=== PATIENT | female | born 1985 | race Caucasian/White ===

== ENCOUNTER 2017-05-07 21:47 | Inpatient (IN) | payer BC, OTHER ==
[~2017-05-07] VITALS: Ht 175.3 cm; Wt 65.8 kg
[2017-05-07] MEDS ORDERED: ONDANSETRON 4 MG/2 ML VIAL IM PRN (22:00)
[2017-05-07] MEDS ORDERED: BUPRENORPHINE HCL 2 MG TAB.SUBL SL PRN (22:00)
[2017-05-07] MEDS ORDERED: ONDANSETRON ODT 4 MG TAB.RAPDIS SL PRN (22:00)
[2017-05-07] MEDS ORDERED: IBUPROFEN 600 MG TABLET PO PRN (22:00)
[2017-05-07] MEDS ORDERED: METHOCARBAMOL 750 MG TABLET PO PRN (22:00)
[2017-05-07] MEDS ORDERED: CLONIDINE HCL 0.1 MG TABLET PO PRN (22:00)
[2017-05-07] MEDS ORDERED: DICYCLOMINE HCL 20 MG TABLET PO PRN (22:00)
[2017-05-07] MEDS ORDERED: MIRALAX 17 GM POWD.PACK PO PRN (22:00)
[2017-05-07] MEDS ORDERED: LOPERAMIDE HCL 2 MG CAPSULE PO PRN ×2 (22:00)
[2017-05-07] MEDS ORDERED: THIAMINE HCL 200 MG/2 ML VIAL IM ONE (22:00)
[2017-05-07] MEDS ORDERED: ACETAMINOPHEN 325 MG TABLET PO PRN (22:00)
[2017-05-07] MEDS ORDERED: LORAZEPAM 2 MG/1 ML VIAL IM PRN (22:00)
[2017-05-07] MEDS ORDERED: LORAZEPAM 1 MG TABLET PO PRN (22:00)
[2017-05-07] MEDS ORDERED: diphenhydrAMINE 50 MG CAPSULE PO PRN (22:00)
[2017-05-07] MEDS ORDERED: MAG HYDROX/AL HYDROX/SIMETH 30 ML LIQUID UDC PO PRN (22:00)
[2017-05-07] MEDS ORDERED: MAGNESIUM HYDROXIDE 30 ML LIQUID UDC PO PRN (22:00)
[2017-05-07 22:48] LABS: BASOPHILS # (AUTO) 0.1 K/uL (0.0-8.0); BASOPHILS % (AUTO) 0.9 % (0.0-2.0); EOSINOPHILS # (AUTO) 0.3 K/uL (0.0-0.7); EOSINOPHILS % (AUTO) 3.6 % (0.0-7.0); HEMATOCRIT 36.2 % (31.2-41.9); HEMOGLOBIN 12.6 g/dL (10.9-14.3); LYMPHOCYTES # (AUTO) 3.2 K/uL (20.0-40.0); LYMPHOCYTES % (AUTO) 38.5 % (20.5-51.5); MEAN CORPUSCULAR HEMOGLOBIN 34.1 uug (24.7-32.8); MEAN CORPUSCULAR HGB CONC 35 g/dL (32.3-35.6); MEAN CORPUSCULAR VOLUME 97.7 fL (75.5-95.3); MONOCYTES # (AUTO) 0.6 K/uL (2.0-10.0); MONOCYTES % (AUTO) 7.2 % (0.0-11.0); NEUTROPHILS # (AUTO) 4.2 K/uL (1.8-8.9); NEUTROPHILS % (AUTO) 49.8 % (38.5-71.5); PLATELET COUNT (AUTO) 280 K/uL (179-408); RED BLOOD CELL COUNT(AUTO) 3.71 MIL/uL (3.63-4.92); WHITE BLOOD COUNT (AUTO) 8.4 K/uL (3.8-11.8)
[2017-05-07 23:08] LABS: BILIRUBIN,TOTAL 0.4 mg/dL (0.2-1.0); CREATININE 0.8 mg/dL (0.6-1.3); MAGNESIUM 1.8 mg/dL (1.8-2.4); POTASSIUM 3.6 mmol/L (3.5-5.1); TOTAL PROTEIN, SERUM 7.1 g/dL (6.4-8.2)
--- NOTE | 2017-05-07 23:30 | NUR ---
PRE - ADMISSION NOTE : Patient is 31 year old female came for supervised withdrawal from Alcohol, Heroin, Meth, Xanax, Marijuana on 05/07/2017. Pt. is poor historian due to heavy intoxication. She confirms history of multiple seizures(last one in November 2016, family history of epilepsy) , history of SI and attempt (she want to discuss it with MD only). She doesnt have Primary Care Provider at this time. Pt. doesnt have prescribed medications at this time . Longest sober period was 11 moths in 2011. Pt. was 12 times in jails and prisons (violence against police officers, possession and selling of drugs). Upon assessment, pt is intoxicated from recent alcohol and drugs consumed prior to admission. She is alert and oriented x3, speech is slow and audible. Pt noted to be anxious, restless, worried, tearful. Heart rate regular. Denies chest pain or SOB. Pupils are 1mm bilaterally, breathing is even and unlabored, lung sounds clear. Denies nausea, vomiting, tactile disturbances, visual or auditory hallucinations at this time. Abdomen is soft and non-distended Pt's skin is warm, dry and intact, no open skin damages, both heels scabs. WL=423/74, HR=80, RR=16, Spo2=98%, denies pain. Hiswic=661mgj, Height=59. CIWA=10, COWS=7. Pt. will be admitted to the unit..
[2017-05-07 23:34] LABS: THYROID STIMULATING HORMONE 4.846 mIU/mL (0.358-3.740)
[2017-05-08] VITALS: BP 128/74
--- NOTE | 2017-05-08 | NUR ---
ADMISSION NOTE : Patient is 31 year old female admitted for supervised withdrawal from Alcohol, Heroin, Meth, Xanax, Marijuana on 05/07/2017. Pt. is allergic to Penicillins, FULL CODE, on Kosher Diet. Pt. is poor historian due to heavy intoxication. She confirms history of multiple seizures(last one in November 2016, family history of epilepsy) , history of SI and attempt (she want to discuss it with MD only). She doesnt have Primary Care Provider at this time. Pt. doesnt have prescribed medications at this time . Longest sober period was 11 moths in 2011. Pt. was 12 times in jails and prisons (violence against police officers, possession and selling of drugs). Upon assessment, pt is intoxicated from recent alcohol and drugs consumed prior to admission. She is alert and oriented x3, speech is slow and audible. Pt noted to be anxious, restless, worried, tearful. Heart rate regular. Denies chest pain or SOB. Pupils are 1mm bilaterally, breathing is even and unlabored, lung sounds clear. Denies nausea, vomiting, tactile disturbances, visual or auditory hallucinations at this time. Abdomen is soft and non-distended. Bowel sounds present in all quadrants, last BM 05/07/17. Pt reports that BM is every second day. Pt's skin is warm, dry and intact, no open skin damages, both heels scabs. LW=138/74, HR=80, RR=16, Spo2=98%, denies pain. Nvjnkc=468ysr, Height=59. CIWA=10, COWS=7. Dr. Baca is aware of pt.s admission, new orders given. Pt oriented to room and unit. Pt. cant provide UDS at this moment. Safety measures in place, side rails up x 2 . Will continue to monitor closely and offer help. Substance use history per patient report: 1) Alcohol (whiskey) - pt. reports last use was 05/07/17, drinking 750ml daily since 2001., started drinking s.2001. 2) Heroin 5gm QD IV/Smokes last 6 mo., last use on 05/07/2017 , Uses since 2005 3) METH 1gm QD IV last year, last use on 05/07/2017, uses since 1999 4) XANAX - Pt. is poor historian due to heavy intoxication. 5) Marijuana , 3gm QD smokes s. 2007, last use on 05/07/2017, uses since 2007 Pt. occasionally takes Cocaine. Pt. smokes 20 cig QD Rehab history: multiple Detox and Rehab attempts. Past Medical History : Chlamydia bacteria infection, Depression, Anxiety, PTSD, Asthma. Pt. has history SI and attempt (she want to discuss it with MD only). Family History : Alcoholizm, HTN, Bipolar disorder
[2017-05-08] MEDS ORDERED: FISH400C2 PO (00:36)
[2017-05-08] MEDS ORDERED: CYAN100071 PO (00:36)
[2017-05-08 04:00] VITALS: BP 129/75
--- NOTE | 2017-05-08 04:00 | NUR ---
PRN ATIVAN, ROBAXIN, CATAPRES (CIWA=13) Pt. complains of nausea, increased level of anxiety, muscle spasm, tremor, flashes . PRN ATIVAN, ROBAXIN, CATAPRES given as ordered. Safety measures in place : bed on lowest position with side rails x2 up for safety, call light within reach. Will continue to monitor closely and offer help.
[2017-05-08] MEDS: LORAZEPAM 1 MG TABLET PO PRN ×2 (04:19→09:03)
[2017-05-08 04:31] LABS: *URINE HCG, QUAL NEGATIVE (NEGATIVE)
[2017-05-08 04:38] LABS: *AMPHETAMINE, URINE POSITIVE (NEGATIVE); *BARBITURATE, URINE NEGATIVE (NEGATIVE); *CANNABINOID, URINE NEGATIVE (NEGATIVE); *COCCAINE, URINE NEGATIVE (NEGATIVE); *OPIATE, URINE POSITIVE (NEGATIVE); *PHENCYCLIDINE SCREEN,URINE NEGATIVE (NEGATIVE)
--- NOTE | 2017-05-08 05:00 | NUR ---
RE-ASSESSMENT YUSEF ECHOLS CATAPRES (CIWA=10) Pt. is sleeping, RR=16, unlabored and even . Safety measures in place : bed on lowest position with side rails x2 up for safety, call light within reach. Will continue to monitor closely and offer help.
--- NOTE | 2017-05-08 06:41 | NUR ---
END OF SHIFT NOTE : Patient is 31 year old female admitted for supervised withdrawal from Alcohol, Heroin, Meth, Xanax, Marijuana on 05/07/2017. Pt. is allergic to Penicillins, FULL CODE, on Kosher Diet. She confirms history of multiple seizures(last one in November 2016, family history of epilepsy) , history of SI and attempt (she want to discuss it with MD only). Pt. PRN ATIVAN, ROBAXIN, CATAPRES given during shift supervisor . CIWA, COWS taken when pt. was awake, last CIWA=13, COWS=7 at 04:00 . Pt. provided UDS, sample has been sent to the lab. Pt. states she feels better after she got [id number], still visible tremor observed. Pupils are 2-3mm, good reaction to the light. CIWA=10 at 05:00. Educated patient regarding the importance of compliance to treatment and medication regime, patient verbalized understanding Intake= 750ml, voided x1, slept=2 hours. Safety measures in place : bed on lowest position with side rails x2 up for safety, all light within reach. Will continue to monitor closely and offer help.
--- NOTE | 2017-05-08 07:57 | NUR ---
Start of shift note; Received report from night nurse. Patient is a 31 year old female admitted last night for ETOH/ Opiate/ Benzodiazepine withdrawals. Patient appears anxious, agitated, complaining of muscle aches, stomach cramps, restlessness, irritability, avoidant to eye contact, appears worried and withdrawn. Educated patient regarding the importance of compliance to treatment and medication regime, patient verbalized understanding. Encouraged patient to verbalize feeling and participate in group activities and therapies. All safety measures secured. Will continue to monitor patient.
[2017-05-08 08:00] VITALS: BP 104/86
[2017-05-08] MEDS: MULTIVITAMINS,THERAPEUTIC TABLET PO SCH (08:55)
[2017-05-08] MEDS: THIAMINE HCL 100 MG TABLET PO SCH (08:55)
[2017-05-08] MEDS: FOLIC ACID 1 MG TABLET PO SCH (08:55)
[2017-05-08] MEDS ORDERED: TUBERCULIN,PURIF.PROT.DERIV. 5 TU/0.1 ML TEST ID ONE (09:00)
--- NOTE | 2017-05-08 09:03 | NUR ---
PRN Medications; Patient is showing s/s of withdrawals, Patient's current COWS score is 18 and CIWA score of 17. PRN Ativan 2mg PO given for CIWA of 17 and PRN Subutex 4mg SL given for COWS os 18. PRN Zofran 4mg ODT given for nausea. Will closely monitor patient for effectiveness of medication. Addendum: 05/08/17 at 1001 by TENA ENGLISH LVN Instructed patient to sit up and put hands on the side while medications are dissolving. Mouth check done every 5-10 seconds. Witnessed patient swallow pills and Subutex dissolved slowly. Patient appears very anxious while medications were being administered. Requested STEFFEN HOUSE SUPERVISOR to conduct a thorough room check during rounds. Will closely monitor patient. Educated patient regarding the importance of compliance to unit protocols and policies, verbalized understanding.
--- NOTE | 2017-05-08 10:03 | NUR ---
Re-assessment; Patient's current COWS score is 13 and CIWA of 10, PRN medications Ativan and Subutex noted to be effective. Patient denies nausea at this time. PRN Zofran also noted to be effective.
[2017-05-08] MEDS ORDERED: NICOTINE POLACRILEX 4 MG GUM-PK OF TEN BC PRN (10:30)
[2017-05-08] MEDS ORDERED: NICOTINE 14 MG/24HR PATCH TD PRN (10:30)
[2017-05-08 12:00] VITALS: BP 122/69
[2017-05-08] MEDS: BUPRENORPHINE HCL 2 MG TAB.SUBL SL SCH ×3 (12:13→21:18)
[2017-05-08] MEDS: LORAZEPAM 1 MG TABLET PO SCH ×3 (12:13→21:19)
--- NOTE | 2017-05-08 12:30 | NUR ---
Medication administration; Due medications administered as ordered. Thorough mouth check done. Witnessed patient swallow Ativan and witnessed Subutex dissolve slowly. Mouth check done every 5 -10 seconds while medication is dissolving. Patient's hands were also thoroughly checked. Thorough room search were done by 2 naprapath, no contrabands noted per YARD GENERAL CAR SUPERVISOR. Will closely monitor patient.
[2017-05-08 16:00] VITALS: BP 118/64
--- NOTE | 2017-05-08 18:31 | NUR ---
End of shift note; Patient is AOx4, appears anxious, agitated, disheveled, complaining of diaphoresis, stomach cramps and muscle aches. Patient's last COWS score is 12 and last CIWA is 10 at 1600. Patient was placed on Ativan and Subutex tapers. Thorough mouth check was done during and post medication administration. Witnessed patient take all her medications appropriately. Patient was educated regarding the importance of compliance to unit protocol and policies, verbalized understanding. Patient remained compliant with treatment plan and medication regime. All safety measures secured. Met all needs.
[2017-05-08 20:00] VITALS: BP 124/75
[2017-05-08] MEDS: TRAZODONE 100 MG TABLET PO SCH (21:18)
[2017-05-08] MEDS: CARBAMAZEPINE 200 MG TABLET PO SCH (21:19)
[2017-05-09] VITALS: BP 122/73
--- NOTE | 2017-05-09 06:46 | NUR ---
END OF SHIFT NOTE : Patient is 31 year old female admitted for supervised withdrawal from Alcohol, Heroin, Meth, Xanax, Marijuana on 05/07/2017. Pt. is allergic to Penicillins, FULL CODE, on Kosher Diet. She confirms history of multiple seizures(last one in November 2016, family history of epilepsy) , history of SI and attempt (she want to discuss it with MD only). No PRNs given during massage therapist . CIWA, COWS taken when pt. was awake, last CIWA=10, COWS=10 at 04:00 . Intake= 3000ml, voided x5, BM=2, slept=5 hours. Safety measures in place : bed on lowest position with side rails x2 up for safety, all light within reach. Will continue to monitor closely and offer help.
[2017-05-09 07:28] LABS: CREATININE 0.9 mg/dL (0.6-1.3); MAGNESIUM 1.7 mg/dL (1.8-2.4); POTASSIUM 4.7 mmol/L (3.5-5.1)
--- NOTE | 2017-05-09 07:46 | NUR ---
Start of shift note; Received report from night nurse. Patient is a 31 year old female admitted last night for ETOH/ Opiate/ Benzodiazepine withdrawals. Patient appears anxious, agitated, complaining of muscle aches, stomach cramps, restlessness, irritability, avoidant to eye contact, appears worried and withdrawn. Educated patient regarding the importance of compliance to treatment and medication regime, patient verbalized understanding. Encouraged patient to verbalize feelings and participate in group activities and therapies. Patient slept for 5 hours. All safety measures secured. Will continue to monitor patient.
[2017-05-09 08:00] VITALS: BP 110/72
[2017-05-09 08:06] LABS: HEPATITIS B SURFACE AG Negative (Negative)
[2017-05-09 08:14] LABS: THYROID STIMULATING HORMONE 2.093 mIU/mL (0.358-3.740)
[2017-05-09] MEDS: ESCITALOPRAM OXALATE 10 MG TABLET NG SCH (08:19)
[2017-05-09] MEDS: FOLIC ACID 1 MG TABLET PO SCH (08:19)
[2017-05-09] MEDS: MULTIVITAMINS,THERAPEUTIC TABLET PO SCH (08:19)
[2017-05-09] MEDS: CARBAMAZEPINE 200 MG TABLET PO SCH ×2 (08:19→21:27)
[2017-05-09] MEDS: LORAZEPAM 1 MG TABLET PO SCH ×3 (08:19→21:27)
[2017-05-09] MEDS: THIAMINE HCL 100 MG TABLET PO SCH (08:19)
[2017-05-09] MEDS: BUPRENORPHINE HCL 2 MG TAB.SUBL SL SCH ×3 (08:20→21:29)
[2017-05-09] MEDS ORDERED: KETOROLAC TROMETHAMINE 30 MG INJ IM PRN (11:30)
[2017-05-09 12:00] VITALS: BP 122/73
[2017-05-09] MEDS ORDERED: MAGNESIUM OXIDE 400 MG TABLET PO ONE (12:30)
--- NOTE | 2017-05-09 13:08 | NUR ---
Magnesium supplement; Patient's magnesium is low. Supplement patient with Mag-Ox 800mg PO one time order per MD.
[2017-05-09 16:00] VITALS: BP 137/72
--- NOTE | 2017-05-09 18:15 | NUR ---
End of shift note; Patient is AOx4, appears anxious, agitated, disheveled, complaining of diaphoresis, stomach cramps and muscle aches. Patient's last COWS score is 9 and last CIWA is 7 at 1600. Patient was placed on Ativan and Subutex tapers. Thorough mouth check was done during and post medication administration. Witnessed patient take all her medications appropriately.Medication administration protocol observed closely. Patient was educated regarding the importance of compliance to unit protocol and policies, verbalized understanding. Patient remained compliant with treatment plan and medication regime. All safety measures secured. Met all needs.
[2017-05-09 20:00] VITALS: BP 119/72
--- NOTE | 2017-05-09 20:00 | NUR ---
WIde awake can't sit still, waiting to get meds to help her.
[2017-05-09] MEDS: BACLOFEN 10 MG TABLET PO SCH (21:27)
[2017-05-09] MEDS: CLONIDINE HCL 0.1 MG TABLET PO SCH (21:28)
[2017-05-09] MEDS: TRAZODONE 100 MG TABLET PO SCH (21:41)
[2017-05-10] VITALS: BP 122/73
[2017-05-10 04:00] VITALS: BP 104/57
--- NOTE | 2017-05-10 06:28 | NUR ---
Slept very soundly most of night
--- NOTE | 2017-05-10 07:50 | NUR ---
Start of shift note; Received report from night nurse. Patient is a 31 year old female admitted last night for ETOH/ Opiate/ Benzodiazepine withdrawals. Patient appears anxious, agitated, complaining of muscle aches, stomach cramps, restlessness, irritability, avoidant to eye contact, appears worried and withdrawn. Educated patient regarding the importance of compliance to treatment and medication regime, patient verbalized understanding. Encouraged patient to verbalize feelings and participate in group activities and therapies. Encouraged patient to maintain adequate fluid and nutritional intake. All safety measures secured. Will continue to monitor patient.
[2017-05-10 08:00] VITALS: BP 103/68
[2017-05-10] MEDS: CARBAMAZEPINE 200 MG TABLET PO SCH ×2 (08:32→21:09)
[2017-05-10] MEDS: BACLOFEN 10 MG TABLET PO SCH ×3 (08:32→21:09)
[2017-05-10] MEDS: THIAMINE HCL 100 MG TABLET PO SCH (08:32)
[2017-05-10] MEDS: ESCITALOPRAM OXALATE 10 MG TABLET NG SCH (08:32)
[2017-05-10] MEDS: FOLIC ACID 1 MG TABLET PO SCH (08:32)
[2017-05-10] MEDS: CLONIDINE HCL 0.1 MG TABLET PO SCH ×3 (08:33→21:09)
[2017-05-10] MEDS: MULTIVITAMINS,THERAPEUTIC TABLET PO SCH (08:33)
[2017-05-10] MEDS ORDERED: BUPRENORPHINE HCL 2 MG TAB.SUBL SL SCH (09:00)
[2017-05-10] MEDS ORDERED: LORAZEPAM 1 MG TABLET PO SCH ×2 (09:00→21:00)
[2017-05-10] MEDS ORDERED: MAGNESIUM CITRATE 296 ML BOTTLE PO PRN (11:15)
[2017-05-10] MEDS ORDERED: BISACODYL 5 MG TABLET.DR PO PRN (11:15)
[2017-05-10] MEDS ORDERED: BISACODYL 10 MG SUPP.RECT RC PRN (11:15)
[2017-05-10 12:00] VITALS: BP 117/66
--- NOTE | 2017-05-10 12:03 | NUR ---
Endorsement note; Detailed report given to covering nurse. Patient is AOX4. Safety measures secured. Met all needs.
--- NOTE | 2017-05-10 12:05 | NUR ---
ASSUMED CARE OF PT. SHE IS A/O X 4.
[2017-05-10] MEDS: LORAZEPAM 1 MG TABLET PO SCH ×2 (12:46→17:32)
[2017-05-10] MEDS: DOCUSATE SODIUM 250 MG CAPSULE PO SCH (12:46)
[2017-05-10] MEDS: BUPRENORPHINE HCL 2 MG TAB.SUBL SL SCH ×2 (14:39→21:11)
[2017-05-10 16:00] VITALS: BP 115/65
--- NOTE | 2017-05-10 18:51 | NUR ---
END OF SHIFT: PT CONTINUES ON ATIVAN/SUBUTEX TAPER TO MANAGE S/S OF W/D WHICH INCLUDE ANXIETY,BODY ACHES,SWEATS AND CHILLS. CIWA 9 COWS 8. NO PRNS GIVEN ON THIS SHIFT. SHE ATTENDED GROUPS AND INTERACTED WITH PEERS. SHE WAS COMPLIANT WITH INCREASED FLUIDS ENCOURAGED. [facility]
[2017-05-10 20:00] VITALS: BP 119/75
--- NOTE | 2017-05-10 20:00 | NUR ---
START OF SHIFT NOTE RECEIVED REPORT FROM DAY SHIFT NURSE. PATIENT IS A 31 YEAR OLD FEMALE ADMITTED FOR ETOH/HEROIN/XANAX AND METH WITHDRAWAL. PATIENT IS ON 5 DAY ATIVAN AND 5 DAY SUBUTEX TAPER. PATIENT DID NOT REQUIRE ANY MEDICATION. LAST COWS 8 AND CIWA 9. RECEIVED PATIENT IN THE ROOM, HOARDING FOOD. PATIENT AVOIDANT EYE CONTACT, ANXIOUS, FLUSHED FACE, IRRITABLE, RESTLESS, STUFFY NOSE, ABDOMINAL CRAMPING, MYALGIA AND PILOERECTION. SAFETY MEASURES IN PLACE. CALL LIGHT IN REACH. WILL CONTINUE TO MONITOR.
[2017-05-10] MEDS: TRAZODONE 100 MG TABLET PO SCH (21:09)
[2017-05-11 04:00] VITALS: BP 100/58
--- NOTE | 2017-05-11 07:30 | NUR ---
END OF SHIFT NOTE PATIENT SLEPT 9 HOURS. FLUID INTAKE OF 796 ML. VOIDED X 3. NO BM. CONTINUE ON ATIVAN AND SUBUTEX TAPER, TOLERATED WELL AND NO ADVERSE REACTION. PATIENT DID NOT REQUIRE ANY MEDICATION. PATIENT IN THE ROOM MOST OF THE SHIFT. LAST COWS 10 AND CIWA 8. SAFETY MEASURES IN PLACE. CALL LIGHT IN REACH. WILL CONTINUE TO MONITOR.
--- NOTE | 2017-05-11 07:34 | NUR ---
BEGINNING OF SHIFT Patient endorsement report received from night clerk nurse, all pertinent information discussed. Patient is a 31 year old female with admitting Dx: opiate/bzo/ETOH withdrawal, and substance use of: cocaine, marijuana and methamphetamine. Patient continues under very close observation, patient currently with ongoing 5 day Ativan and 5 day Subutex taper as ordered. Per night clerk patient with last cow score of: 10, and ciwa score of: 8. Received no PRNs during night clerk. slept for 8 hours. Fall and seizure precautions observed at all times. Patient received awake, alert and oriented x4, educated regarding plan of care for the day, and medication regimen with good verbal understanding. fall and seizure precautions observed and in place. will continue to monitor closely. safety measures in place.
[2017-05-11 08:49] VITALS: BP 102/62
[2017-05-11] MEDS: CLONIDINE HCL 0.1 MG TABLET PO SCH ×3 (09:00→21:33)
[2017-05-11] MEDS ORDERED: LORAZEPAM 1 MG TABLET PO SCH ×3 (09:00→21:00)
[2017-05-11] MEDS ORDERED: BUPRENORPHINE HCL 2 MG TAB.SUBL SL SCH (09:00)
[2017-05-11] MEDS: MULTIVITAMINS,THERAPEUTIC TABLET PO SCH (09:03)
[2017-05-11] MEDS: THIAMINE HCL 100 MG TABLET PO SCH (09:03)
[2017-05-11] MEDS: FOLIC ACID 1 MG TABLET PO SCH (09:03)
[2017-05-11] MEDS: ESCITALOPRAM OXALATE 10 MG TABLET PO SCH (09:03)
[2017-05-11] MEDS: CARBAMAZEPINE 200 MG TABLET PO SCH ×3 (09:03→21:34)
[2017-05-11] MEDS: DOCUSATE SODIUM 250 MG CAPSULE PO SCH (09:04)
[2017-05-11] MEDS: BACLOFEN 10 MG TABLET PO SCH ×3 (09:04→21:34)
[2017-05-11] MEDS: BUPRENORPHINE HCL 2 MG TAB.SUBL SL SCH ×4 (09:04→21:34)
[2017-05-11] MEDS ORDERED: ASPI1TAB32 PO (09:53)
[2017-05-11] MEDS ORDERED: BUPR300T54 PO (09:54)
[2017-05-11] MEDS ORDERED: ESCI10TA PO (09:57)
[2017-05-11] MEDS ORDERED: TRAZ-144 PO (09:57)
[2017-05-11] MEDS ORDERED: PRAZOSIN HCL 1 MG CAPSULE PO PRN (10:30)
[2017-05-11 12:08] VITALS: BP 118/72
[2017-05-11] MEDS: LORAZEPAM 1 MG TABLET PO SCH ×2 (12:09→16:49)
[2017-05-11 16:48] VITALS: BP 105/68
--- NOTE | 2017-05-11 19:07 | NUR ---
END OF SHIFT Patient alert and oriented x4, monitored closely during shift. Patient has a worried, and anxious facial expression. Patient is disheveled. Tearful at times and noted with flat affect, and anxious mood. Patient with admitting Dx: etoh/bzo/opiate withdrawal, continues on a 5 day Subutex and 5 day Ativan taper as ordered. During shift patient presented with: gooseflesh, anxiety, irritable, tremors, stomach cramps, moist eyes, bone and joint aches, enlarged pupils, and c/o chills. Initial cow score of: 12, and ciwa score of: 11. Last cow score of: 12 and last ciwa score of: 11. detox medication effective at reducing withdrawal symptoms. Patient was encouraged adequate PO fluid intake as tolerated. Was administered no PRNs during shift. Patient encouraged to participate in therapy sessions, patient denies any SI/HI. Patient was encouraged to verbalize feelings, encouraged to develop coping skills and utilization of non pharmacological interventions. patients safety measures are in place. received no PRN during shift. call light kept with in reach, will continue to monitor. Endorsed to drill sergeant nurse, all pertinent information discussed.
--- NOTE | 2017-05-11 19:20 | NUR ---
Start of Shift Patient Received. Patient is in the activities room participating in a group meeting. Per endorsement, patient continues on a modified Subutex and Ativan taper. Patient has been noted to be emotional, noted with increased anxiety, body aches, complains of chills and sweats, and tremors. She is noted to be disheveled with a flat affect. No PRN medications administered. Last noted CIWA 11 and COWS 12. All needs attended to promptly. Will continue plan of care as ordered.
[2017-05-11 20:30] VITALS: BP 129/75
[2017-05-11] MEDS: TRAZODONE 100 MG TABLET PO SCH (21:34)
[2017-05-12 00:55] VITALS: BP 112/73
[2017-05-12 04:11] VITALS: BP 103/62
--- NOTE | 2017-05-12 07:20 | NUR ---
End of Shift Patient is noted in bed sleeping. Breathing even and non labored. Patient continues on a modified Subutex and Ativan taper. She is noted to be emotional, increased anxiety, body aches, tremulous, and chills. Last noted COWS 14 and CIWA 12. Patient noted to sleep a total of 8 hours. No PRN medications administered. All needs attended to promptly. Will continue plan of care as ordered.
--- NOTE | 2017-05-12 07:37 | NUR ---
BEGINNING OF SHIFT Patient endorsement report received from night supervisor nurse, all pertinent information discussed. Patient is a 31 year old female with admitting Dx: opiate/bzo/ETOH withdrawal, and substance use of: cocaine, marijuana and methamphetamine. Patient continues under very close observation, patient currently with ongoing 5 day Ativan and 5 day Subutex taper as ordered. Per night supervisor patient with last cow score of: 14, and ciwa score of: 12. Received no PRNs during night supervisor. slept for 8 hours. Fall and seizure precautions observed at all times. Patient received awake, alert and oriented x4, educated regarding plan of care for the day, and medication regimen with good verbal understanding. fall and seizure precautions observed and in place. will continue to monitor closely. safety measures in place.
[2017-05-12 08:43] VITALS: BP 120/70
[2017-05-12] MEDS: DOCUSATE SODIUM 250 MG CAPSULE PO SCH (08:59)
[2017-05-12] MEDS: BACLOFEN 10 MG TABLET PO SCH (08:59)
[2017-05-12] MEDS: MULTIVITAMINS,THERAPEUTIC TABLET PO SCH (08:59)
[2017-05-12] MEDS: CLONIDINE HCL 0.1 MG TABLET PO SCH ×2 (08:59→14:20)
[2017-05-12] MEDS: LORAZEPAM 1 MG TABLET PO SCH ×3 (08:59→21:35)
[2017-05-12] MEDS: CARBAMAZEPINE 200 MG TABLET PO SCH ×3 (08:59→21:36)
[2017-05-12] MEDS: THIAMINE HCL 100 MG TABLET PO SCH (08:59)
[2017-05-12] MEDS: FOLIC ACID 1 MG TABLET PO SCH (08:59)
[2017-05-12] MEDS: BUPRENORPHINE HCL 2 MG TAB.SUBL SL SCH ×3 (08:59→21:36)
[2017-05-12] MEDS: ESCITALOPRAM OXALATE 10 MG TABLET PO SCH (08:59)
[2017-05-12] MEDS ORDERED: BUPRENORPHINE HCL 2 MG TAB.SUBL SL SCH (09:00)
[2017-05-12] MEDS ORDERED: LORAZEPAM 1 MG TABLET PO SCH (09:00)
[2017-05-12 13:35] VITALS: BP 117/60
[2017-05-12] MEDS: DICYCLOMINE HCL 20 MG TABLET PO SCH ×2 (14:18→21:35)
[2017-05-12] MEDS: BACLOFEN 20 MG TABLET PO SCH ×2 (14:18→21:36)
[2017-05-12] MEDS ORDERED: IBUP-1955 PO (17:04)
[2017-05-12] MEDS ORDERED: DICY20TA28 PO (17:04)
[2017-05-12] MEDS ORDERED: CARB200T8 PO (17:04)
[2017-05-12] MEDS ORDERED: TRAZ-147 PO (17:04)
[2017-05-12] MEDS ORDERED: PRAZ1CAP2 PO (17:04)
[2017-05-12] MEDS ORDERED: BACL20TA PO (17:04)
[2017-05-12] MEDS ORDERED: ESCI10TA PO (17:04)
[2017-05-12] MEDS ORDERED: DIPH50CA37 PO (17:04)
[2017-05-12] MEDS ORDERED: CLON0.1T14 PO (17:04)
[2017-05-12 17:27] VITALS: BP 117/60
--- NOTE | 2017-05-12 19:08 | NUR ---
END OF SHIFT Patient alert and oriented x4, monitored closely during shift. Patient has a worried, and anxious facial expression. Patient is disheveled. Tearful at times and noted with flat affect, and anxious mood. Patient with admitting Dx: etoh/bzo/opiate withdrawal, continues on a 5 day Subutex and 5 day Ativan taper as ordered. During shift patient presented with: c/o chills, difficulty sitting still, dilated pupils, bone and joint aches, moist eyes, stomach cramps, tremors that can be felt but not seen, anxiety. Initial cow score of: 9 and ciwa score of: 11. Last cow score of: 9, and ciwa score of: 11. detox medication effective at reducing withdrawal symptoms. Patient was encouraged adequate PO fluid intake as tolerated. Was administered no PRNs during shift. Patient encouraged to participate in therapy sessions, patient denies any SI/HI. Patient was encouraged to verbalize feelings, encouraged to develop coping skills and utilization of non pharmacological interventions. patients safety measures are in place. received no PRN during shift. call light kept with in reach, will continue to monitor. Endorsed to awake overnight counselor nurse, all pertinent information discussed.
--- NOTE | 2017-05-12 19:25 | NUR ---
Start of Shift Patient Received. Patient is in activities room participating in a group meeting. Per endorsement, patient continues on a modified Subutex and Ativan taper. No PRN medications administered. Last noted CIWA 11 and COWS 9. All needs attended to promptly. Will continue plan of care as ordered.
[2017-05-12 20:43] VITALS: BP 134/84
[2017-05-12] MEDS: CLONIDINE HCL 0.2 MG TABLET PO SCH (21:35)
[2017-05-12] MEDS: TRAZODONE 100 MG TABLET PO SCH (21:36)
[2017-05-13 00:20] VITALS: BP 116/71
[2017-05-13 04:20] VITALS: BP 106/67
--- NOTE | 2017-05-13 07:28 | NUR ---
End of Shift Patient is noted in bed sleeping. Breathing even and non labored. No signs of pain or discomfort noted. Patient continues on a modified Subutex and Ativan taper. No PRN medications administered. Last noted CIWA 11 and COWS 11. She slept a total of 7 hours. All needs attended to promptly. Will endorse to continue plan of care as ordered.
--- NOTE | 2017-05-13 07:45 | NUR ---
BEGINNING OF SHIFT Patient endorsement report received from cnc machinist 2nd shift nurse, all pertinent information discussed. Patient is a 31 year old female with admitting Dx: opiate/bzo/ETOH withdrawal, and substance use of: cocaine, marijuana and methamphetamine. Patient continues under very close observation, patient currently with ongoing 5 day Ativan and 5 day Subutex taper as ordered. Per cnc machinist 2nd shift patient with last cow score of: 6, and ciwa score of: 11. Received no PRNs during cnc machinist 2nd shift. slept for 7 hours. Fall and seizure precautions observed at all times. Patient received awake, alert and oriented x4, educated regarding plan of care for the day, and medication regimen with good verbal understanding. fall and seizure precautions observed and in place. will continue to monitor closely. safety measures in place.
[2017-05-13 08:28] VITALS: BP 122/74
[2017-05-13] MEDS: CARBAMAZEPINE 200 MG TABLET PO SCH ×3 (09:00→20:17)
[2017-05-13] MEDS: LORAZEPAM 1 MG TABLET PO SCH ×2 (09:00→20:17)
[2017-05-13] MEDS: FOLIC ACID 1 MG TABLET PO SCH (09:00)
[2017-05-13] MEDS: THIAMINE HCL 100 MG TABLET PO SCH (09:00)
[2017-05-13] MEDS: DOCUSATE SODIUM 250 MG CAPSULE PO SCH (09:00)
[2017-05-13] MEDS: DICYCLOMINE HCL 20 MG TABLET PO SCH ×3 (09:00→20:17)
[2017-05-13] MEDS ORDERED: BUPRENORPHINE HCL 2 MG TAB.SUBL SL SCH (09:00)
[2017-05-13] MEDS ORDERED: LORAZEPAM 1 MG TABLET PO SCH (09:00)
[2017-05-13] MEDS: ESCITALOPRAM OXALATE 10 MG TABLET PO SCH (09:00)
[2017-05-13] MEDS: MULTIVITAMINS,THERAPEUTIC TABLET PO SCH (09:00)
[2017-05-13] MEDS: BACLOFEN 20 MG TABLET PO SCH ×3 (09:00→20:17)
[2017-05-13] MEDS: BUPRENORPHINE HCL 2 MG TAB.SUBL SL SCH ×2 (09:01→20:16)
[2017-05-13] MEDS: CLONIDINE HCL 0.1 MG TABLET PO SCH ×2 (09:02→14:21)
[2017-05-13 13:52] VITALS: BP 123/77
[2017-05-13 17:37] VITALS: BP 117/74
--- NOTE | 2017-05-13 19:04 | NUR ---
END OF SHIFT Patient alert and oriented x4, monitored closely during shift. Patient has a worried, and anxious facial expression. Patient is disheveled. Tearful at times and noted with flat affect, and anxious mood. Patient with admitting Dx: etoh/bzo/opiate withdrawal, continues on a 5 day Subutex and 5 day Ativan taper as ordered. During shift patient presented with: c/o chills, difficulty sitting still, dilated pupils, bone and joint aches, moist eyes, stomach cramps, tremors that can be felt but not seen, anxiety. Initial cow score of: 10 and ciwa score of:10. Last cow score of: 9, and ciwa score of: 9. detox medication effective at reducing withdrawal symptoms. Patient was encouraged adequate PO fluid intake as tolerated. Was administered no PRNs during shift. Patient encouraged to participate in therapy sessions, patient denies any SI/HI. Patient was encouraged to verbalize feelings, encouraged to develop coping skills and utilization of non pharmacological interventions. patients safety measures are in place. received no PRN during shift. call light kept with in reach, will continue to monitor. Endorsed to electric screw driver operator nurse, all pertinent information discussed.
--- NOTE | 2017-05-13 19:10 | NUR ---
Start of Shift Patient Received. Patient is noted in the activities room participating in a group meeting. Per endorsement, patient continues on a modified Subutex and Ativan taper. Patient is noted to be labile and anxious with a flat affect. She is noted to be disheveled. Last noted COWS 9 and CIWA 9. No PRN medications administered. All needs attended to promptly. Will continue plan of care as ordered.
[2017-05-13 20:08] VITALS: BP 128/84
[2017-05-13] MEDS: TRAZODONE 100 MG TABLET PO SCH (20:16)
[2017-05-13] MEDS: CLONIDINE HCL 0.2 MG TABLET PO SCH (20:17)
[2017-05-14 00:20] VITALS: BP 116/72
[2017-05-14 04:20] VITALS: BP 104/68
--- NOTE | 2017-05-14 06:58 | NUR ---
End of Shift Patient is noted in bed sleeping. Breathing even and non labored. Patient continues on a modified Subutex and Ativan taper. She is noted to be disheveled, emotionally labile with flat affect. Last noted COWS 10 and CIWA 11. No PRN medications administered. Patient slept a total of 7 hours. All needs attended to promptly. Will endorse to continue plan of care as ordered.
--- NOTE | 2017-05-14 07:04 | NUR ---
Start of Shift Notes: Received patient in her room. Laying in bed with eyes closed. Arousable when her name is called. Breathing even and unlabored. Upon waking, patient appears drowsy. But able to verbalize her needs. Denies S/i or H/I. No AV hallucinations noted. Patient appears disheveled and room appears messy and unkept. Encouraged maintenance of personal hygiene and space. Patient is a 31 year old female admitted for opiate/BZO/ETOH withdrawal who was placed on a 5-day Subutex and 5-day Ativan taper as ordered. No adverse reactions noted. Educated patient on her current plan of care for the day and her medication regimen. Encouraged oral fluid intake and encouraged group participation to learn new skills to prevent relapse. Will continue to monitor closely.
[2017-05-14 08:00] VITALS: BP 122/68
[2017-05-14] MEDS: THIAMINE HCL 100 MG TABLET PO SCH (08:14)
[2017-05-14] MEDS: MULTIVITAMINS,THERAPEUTIC TABLET PO SCH (08:14)
[2017-05-14] MEDS: CARBAMAZEPINE 200 MG TABLET PO SCH ×3 (08:14→21:32)
[2017-05-14] MEDS: FOLIC ACID 1 MG TABLET PO SCH (08:14)
[2017-05-14] MEDS: DOCUSATE SODIUM 250 MG CAPSULE PO SCH (08:14)
[2017-05-14] MEDS: DICYCLOMINE HCL 20 MG TABLET PO SCH ×3 (08:14→21:31)
[2017-05-14] MEDS: CLONIDINE HCL 0.1 MG TABLET PO SCH ×2 (08:15→14:01)
[2017-05-14] MEDS: BACLOFEN 20 MG TABLET PO SCH ×3 (08:15→21:32)
[2017-05-14] MEDS: ESCITALOPRAM OXALATE 10 MG TABLET PO SCH (08:15)
[2017-05-14] MEDS ORDERED: BUPRENORPHINE HCL 2 MG TAB.SUBL SL SCH (09:00)
[2017-05-14] MEDS ORDERED: LORAZEPAM 1 MG TABLET PO SCH (09:00)
[2017-05-14 12:00] VITALS: BP 131/89
--- NOTE | 2017-05-14 13:30 | NUR ---
Mid Shift Notes: Patient is in her room. Watching TV. COWS 10/AL 10 at 1200.
[2017-05-14 16:00] VITALS: BP 133/87
--- NOTE | 2017-05-14 19:01 | NUR ---
End of Shift Notes: Patient completed his 5-day Subutex and 5-day Ativan taper successfully. No adverse reactions noted. Patient stated that Ativan and Subutex has been effective in reducing her withdrawal symptoms. VS monitored closely. No significant abnormalities noted. Withdrawal symptoms were closely monitored. Initial COWS 14/CIWA 13, patient presented with chills, hot flashes, restlessness, nasal stuffiness, myalgia, stomach cramps, tremors, anxiety and agitation. Last COWS 10/CIWA 10. Patient was able to participate in group and activities despite her withdrawal symptoms. Appetite good. Compliant with care and treatment. Smoking cessation encouraged. All needs met and attended. Will continue to monitor closely.
--- NOTE | 2017-05-14 19:11 | NUR ---
Endorsed patient to night nurse. Patient completed his 5-day Subutex and 5-day Ativan taper successfully. No adverse reactions noted. Patient stated that Ativan and Subutex has been effective in reducing her withdrawal symptoms. VS monitored closely. No significant abnormalities noted. Withdrawal symptoms were closely monitored. Initial COWS 14/CI 13, patient presented with chills, hot flashes, restlessness, nasal stuffiness, myalgia, stomach cramps, tremors, anxiety and agitation. Last COWS /. Patient was able to participate in group and activities despite her withdrawal symptoms. Appetite good. Compliant with care and treatment. Smoking cessation encouraged. All needs met and attended. Will continue to monitor closely. Addendum: 05/14/17 at 1912 by EVARISTO CHENG LVN Error in charting
--- NOTE | 2017-05-14 19:30 | NUR ---
START OF SHIFT Pt received in [facility],a/o x4,she has completed his 5-day Subutex and 5-day Ativan taper successfully and is scheduled for DC in the morning. No adverse reactions noted. V/S have been stable. Last COWS 10/CIWA 10. Per report, Pt was able to participate in group and activities despite her withdrawal symptoms. Appetite good. Pt is compliant with care and treatment. All needs met and attended. Will continue to monitor closely.
[2017-05-14 20:00] VITALS: BP 133/87
[2017-05-14] MEDS: CLONIDINE HCL 0.2 MG TABLET PO SCH (21:31)
[2017-05-14] MEDS: TRAZODONE 100 MG TABLET PO SCH (21:32)
[2017-05-15] VITALS: BP 130/81
--- NOTE | 2017-05-15 | NUR ---
COWS/CIWA DEFERRED DUE TO PT BEING ASLEEP.BREATHING IS EVEN AND NO LABORED,NO S/S OF DISTRESS NOTED,ALL SAFETY MEASURES IN PLACE,WILL CONTINUE TO MONITOR.
--- NOTE | 2017-05-15 04:00 | NUR ---
V/S REFUSED; COWS/CIWA DEFERRED DUE TO PT BEING ASLEEP.BREATHING IS EVEN AND NO LABORED,NO S/S OF DISTRESS NOTED,ALL SAFETY MEASURES IN PLACE,WILL CONTINUE TO MONITOR.
--- NOTE | 2017-05-15 06:37 | NUR ---
END OF SHIFT Pt is a/o x4,pleasant on approach; she has completed her 5-day Subutex and 5-day Ativan taper successfully and is scheduled for DC today. No adverse reactions noted. V/S have been stable. Last COWS 9/CIWA 7 at 1999. No PRN meds given last night.Pt is compliant with care and treatment.Pt slept 7 hrs,fluid intake was 750 mls,voided x 3 and had 1 b/m. All needs met and attended. Will continue to monitor.
--- NOTE | 2017-05-15 07:30 | NUR ---
start of shift note: received pt from wire coiner nurse, pt is in stable condition at this time, pt is set for discharge today, will assist pt in discharging and will continue to meet pts needs. pt is admitted to [facility] for polysubstance use. pts last documented cows 9 and ciwa 7.
[2017-05-15] MEDS: DICYCLOMINE HCL 20 MG TABLET PO SCH (08:59)
[2017-05-15] MEDS: ESCITALOPRAM OXALATE 10 MG TABLET PO SCH (08:59)
[2017-05-15] MEDS: THIAMINE HCL 100 MG TABLET PO SCH (08:59)
[2017-05-15] MEDS: FOLIC ACID 1 MG TABLET PO SCH (08:59)
[2017-05-15] MEDS: MULTIVITAMINS,THERAPEUTIC TABLET PO SCH (08:59)
[2017-05-15] MEDS: DOCUSATE SODIUM 250 MG CAPSULE PO SCH (08:59)
[2017-05-15] MEDS: CARBAMAZEPINE 200 MG TABLET PO SCH (08:59)
[2017-05-15 09:00] VITALS: BP 112/86
[2017-05-15] MEDS: BACLOFEN 20 MG TABLET PO SCH (09:00)
[2017-05-15] MEDS: CLONIDINE HCL 0.1 MG TABLET PO SCH (09:00)
--- NOTE | 2017-05-15 09:25 | NUR ---
discharge note: pt left the unit in stable condition no s/s of withdrawal at this time, pt left with all personal belongings, pt teaching was administered and pt verbalized understanding. pt will be transferred to [facility] via private car
== END 2017-05-15 09:25 | disposition home or self-care (01) | DRG 895 ==
LOC: SRC 21:47
PROVIDERS: ADMIT Internal Medicine; ATTEND Internal Medicine
PROC: HZ2ZZZZ Detoxification Services for Substance Abuse Treatment (ICD-10-PCS; principal; 2017-05-07)
PROC: HZ41ZZZ Group Counseling for Substance Abuse Treatment, Behavioral (ICD-10-PCS; 2017-05-08)
PROC: HZ31ZZZ Individual Counseling for Substance Abuse Treatment, Behavioral (ICD-10-PCS; 2017-05-10)
DX: F10.232 Alcohol dependence with withdrawal with perceptual disturbance (principal); Z86.74 Personal history of sudden cardiac arrest; E83.42 Hypomagnesemia; I15.9 Secondary hypertension, unspecified; E87.1 Hypo-osmolality and hyponatremia; F15.23 Other stimulant dependence with withdrawal; F11.23 Opioid dependence with withdrawal; F13.239 Sedative, hypnotic or anxiolytic dependence with withdrawal, unspecified; Y90.6 Blood alcohol level of 120-199 mg/100 ml; Z59.0 Homelessness; Z81.1 Family history of alcohol abuse and dependence; Z81.8 Family history of other mental and behavioral disorders; Z82.49 Family history of ischemic heart disease and other diseases of the circulatory system; Z91.5 Personal history of self-harm; Z65.3 Problems related to other legal circumstances; Z91.14 Patient's other noncompliance with medication regimen; F12.20 Cannabis dependence, uncomplicated; F14.10 Cocaine abuse, uncomplicated; Z59.1 Inadequate housing; J45.20 Mild intermittent asthma, uncomplicated; F44.81 Dissociative identity disorder; F50.9 Eating disorder, unspecified; F41.9 Anxiety disorder, unspecified; G47.50 Parasomnia, unspecified; K59.03 Drug induced constipation; F17.210 Nicotine dependence, cigarettes, uncomplicated; E07.81 Sick-euthyroid syndrome; F32.9 Major depressive disorder, single episode, unspecified
CPT/HCPCS: 36415; 70030-TC; 80307; 80324; 80361; 83735; 84443; 84703; 85025; 86580; 86592; 86705; 86803; 87340; 87806; G0480; Q0162

== ENCOUNTER 2018-02-27 13:32 | Inpatient (IN) | payer BC, OTHER ==
[~2018-02-27] VITALS: Ht 175.3 cm; Wt 67.1 kg
[~2018-02-27 13:32] MED LIST: ASPI1TAB32 PO; BACL20TA PO; BUPR300T54 PO; CARB200T8 PO; CLON0.1T14 PO; CYAN100071 PO; DICY20TA28 PO; DIPH50CA37 PO; ESCI10TA PO; FISH400C2 PO; IBUP-1955 PO; PRAZ1CAP2 PO; TRAZ-182 PO; TRAZ-214 PO
[2018-02-27 15:50] VITALS: BP 125/66
--- NOTE | 2018-02-27 15:50 | NUR ---
Pre-admission Assessment VS: BP 125/66 P 105 RR 17 Temp 98.7 SpO2 97% RA Patient is a 34 year old female presenting to [facility] for medically supervised withdrawal from multiple substances. Patient has been using Whiskey (last drink 2 hours ago) Klonopin (last use 2 weeks ago), Xanax (last use 5 days ago), Heroin (last use 3 days ago), Subutex (last use 2 weeks ago), Meth (last use 10 hours ago), Crack Cocaine (last use 2 days ago), Psilocybin mushrooms (last use 3 days ago), and Cannabis (last use 3 hours ago). She is currently intoxicated from ETOH and Meth and in active withdrawal from Heroin. A&O x 4 and cooperative with assessment. Patient is fidgety and unable to sit still. She is also tearful and hyperverbal. She endoreses myalgia, nausea, and diaphoresis. Patient states she has had more than 30 suicide attempts via OD, many resulting in 5150. Last one 2 months ago. Denies SI/HI at this time. Positive seizure history r/t withdrawal in 2008. Policies and procedures explained to the patient. Admission will continue on the unit.
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
[2018-02-27] MEDS ORDERED: DIAZEPAM 10 MG TABLET PO PRN ×2 (17:30)
[2018-02-27] MEDS ORDERED: MAGNESIUM HYDROXIDE 30 ML LIQUID UDC PO PRN (17:30)
[2018-02-27] MEDS ORDERED: ACETAMINOPHEN 325 MG TABLET PO PRN (17:30)
[2018-02-27] MEDS ORDERED: HYDROXYZINE PAMOATE 25 MG CAPSULE PO PRN (17:30)
[2018-02-27] MEDS ORDERED: LORAZEPAM 0.5 MG TABLET PO PRN (17:30)
[2018-02-27] MEDS ORDERED: DIAZEPAM 5 MG TABLET PO PRN (17:30)
[2018-02-27] MEDS ORDERED: LOPERAMIDE HCL 2 MG CAPSULE PO PRN ×2 (17:30)
[2018-02-27] MEDS ORDERED: ONDANSETRON 4 MG/2 ML VIAL IM PRN (17:30)
[2018-02-27] MEDS ORDERED: diphenhydrAMINE 50 MG CAPSULE PO PRN (17:30)
[2018-02-27] MEDS ORDERED: BUPRENORPHINE HCL 2 MG TAB.SUBL SL PRN (17:30)
[2018-02-27] MEDS ORDERED: MAG HYDROX/AL HYDROX/SIMETH 30 ML LIQUID UDC PO PRN (17:30)
[2018-02-27] MEDS ORDERED: LORAZEPAM 2 MG/1 ML VIAL IM PRN (17:30)
[2018-02-27] MEDS: MULTIVITAMINS,THERAPEUTIC TABLET PO SCH (17:30)
[2018-02-27] MEDS ORDERED: CLONIDINE HCL 0.1 MG TABLET PO PRN (17:30)
[2018-02-27 18:49] LABS: *URINE HCG, QUAL NEGATIVE (NEGATIVE)
[2018-02-27 19:06] LABS: *AMPHETAMINE, URINE POSITIVE (NEGATIVE); *BARBITURATE, URINE NEGATIVE (NEGATIVE); *CANNABINOID, URINE POSITIVE (NEGATIVE); *COCCAINE, URINE NEGATIVE (NEGATIVE); *OPIATE, URINE NEGATIVE (NEGATIVE); *PHENCYCLIDINE SCREEN,URINE NEGATIVE (NEGATIVE)
--- NOTE | 2018-02-27 19:30 | NUR ---
Start of shift note Received report from day shift nurse. Patient is a 32 year old female newly admitted for Benzodiazepine, ETOH and Opioid withdrawal. Patient was placed on 5 day Subutex and 5 day Valium taper to start tomorrow. PRN Valium and Subutex available. Patient did not receive PRN medication. Patient in the room. Patient is anxious, pacing around the room, restless, agitated and irritable. She reports nausea, stuffy nose, abdominal cramping, sensitive to light , muscle aches , no appetite and bilateral hand tremors. Relaxation technique provided and positive encouragement given. Safety measures in place. Will continue to monitor.
[2018-02-27 20:00] VITALS: BP 133/80
[2018-02-27] MEDS: METHOCARBAMOL 750 MG TABLET PO PRN (20:02)
[2018-02-27] MEDS: IBUPROFEN 600 MG TABLET PO PRN (20:02)
--- NOTE | 2018-02-27 20:02 | NUR ---
PRN Valium, Subutex SL, Motrin, Robaxin and Zofran administration Patient is anxious, pacing around the room, restless, agitated and irritable. She reports nausea, stuffy nose, abdominal cramping, sensitive to light , muscle aches , no appetite and bilateral hand tremors.
[2018-02-27] MEDS: ONDANSETRON ODT 4 MG TAB.RAPDIS SL PRN (20:03)
--- NOTE | 2018-02-27 20:30 | NUR ---
END OF SHIFT NOTE Patient is 20 year old newly admitted for ETOH/BENZO/Heroin withdrawal. Currently not on any taper but PRN'S available for s/s of withdrawal. Patient is resting in her room able to eat 75% of her dinner.Encourage PO fluids as tolerated. All safety measures in place. Patient endorsed to night nurse in stable condition.
--- NOTE | 2018-02-27 20:32 | NUR ---
PRN Subutex SL re-assessment Patient states Subutex helpful and effective. Still anxious but feels much better
--- NOTE | 2018-02-27 20:32 | NUR ---
PRN Zofran SL re-assessment Patient states Zofran is helpful and effective. Nausea ceased
--- NOTE | 2018-02-27 21:32 | NUR ---
PRN Valium, Motrin, Robaxin re-assessment Patient states medication are helpful and effective. Pain lessened. Still anxious but feels much better
[2018-02-28] VITALS: BP 120/78
[2018-02-28 02:17] LABS: BASOPHILS % (AUTO) 0.4 % (0.0-2.0); EOSINOPHILS # (AUTO) 0.1 K/uL (0.0-0.7); HEMOGLOBIN 12.7 g/dL (10.9-14.3); LYMPHOCYTES % (AUTO) 38.5 % (20.5-51.5); MEAN CORPUSCULAR HEMOGLOBIN 33.3 uug (24.7-32.8); MEAN CORPUSCULAR HGB CONC 35 g/dL (32.3-35.6); MEAN CORPUSCULAR VOLUME 94.5 fL (75.5-95.3); MONOCYTES # (AUTO) 0.7 K/uL (2.0-10.0); MONOCYTES % (AUTO) 9.3 % (0.0-11.0); NEUTROPHILS % (AUTO) 50.8 % (38.5-71.5); PLATELET COUNT (AUTO) 335 K/uL (179-408); RED BLOOD CELL COUNT(AUTO) 3.81 MIL/uL (3.63-4.92); WHITE BLOOD COUNT (AUTO) 7.9 K/uL (3.8-11.8)
[2018-02-28 02:46] LABS: ALANINE AMINOTRANSFERASE 37 U/L (14-59); ALKALINE PHOSPHATASE 84 U/L (50-136); ASPARTATE AMINOTRANSFERASE 14 U/L (15-37); BILIRUBIN,TOTAL 0.2 mg/dL (0.2-1.0); CARBON DIOXIDE 27 mmol/L (21-32); CHLORIDE 102 mmol/L (98-107); CREATININE 0.9 mg/dL (0.6-1.3); GLUCOSE 116 mg/dL (74-106); MAGNESIUM 1.6 mg/dL (1.8-2.4); POTASSIUM 3.3 mmol/L (3.5-5.1); TOTAL PROTEIN, SERUM 6.4 g/dL (6.4-8.2); UREA NITROGEN, BLOOD 12 mg/dL (7-18)
[2018-02-28 02:53] LABS: THYROID STIMULATING HORMONE 1.061 mIU/mL (0.358-3.740)
[2018-02-28 03:24] LABS: ETHANOL < 3 MG/DL (0-0)
[2018-02-28 04:00] VITALS: BP 129/81
--- NOTE | 2018-02-28 04:00 | NUR ---
COWS and CIWA deferred Patient in bed with eyes closed. Respiration even and unlabored. Will continue to monitor
--- NOTE | 2018-02-28 07:30 | NUR ---
End of shift note Patient was placed on 5 day Subutex and 5 day Valium taper starting today. Patient was anxious, pacing around the room, restless, agitated and irritable. She reported nausea, stuffy nose, abdominal cramping, sensitive to light , muscle aches , no appetite and bilateral hand tremors. PRN Valium, Subutex, Motrin, Benadryl, Robaxin and Zofran, effective. Safety measures in place. Will continue to monitor. Slept 3 hours. Fluid intake 1,860 ml. Voided x 3. No BM. Addendum: 02/28/18 at 0735 by GISELA PURDY LVN Patient had difficulty falling asleep. PRN Benadryl ineffective.
--- NOTE | 2018-02-28 07:31 | NUR ---
Start Of Shift Report received from lieutenant shift supervisor nurse. Patient is 20 year old newly admitted for ETOH/BENZO/Heroin withdrawal. Per lieutenant shift supervisor nurse pt's last CIWA was 12 and COWS 10. Pt continues 5 day Valium and 5 Day Subutex tapers. Upon start of shift pt noted laying in bed with eyes closed resting, breathing even and unlabored. When greeted pt stated " I couldnt sleep very well last night and feel very fatigued", pt has water, soda bottles and candy wraps thrown around the room. Pt appears anxious, sweaty and flushed. During assessment, pt is AOx3. Lung sounds clear bilaterally. Radial pulse is regular and non-bounding. Abdomen soft and non-tender. Pt's skin is warm and intact. pt denies any pain at the moment. Encouraged pt to drink plenty of fluids to keep hydrated and help the detox process. Pt received PRN Subutex and Valium last night for withdrawal symptoms, per lieutenant shift supervisor medication was effective, pt slept a total of 3 hours last night. Bed in lowest position. Side rails up x2. Call light functioning and within reach. All needs attended and met. Will continue to monitor.
[2018-02-28 08:00] VITALS: BP 117/80
[2018-02-28] MEDS ORDERED: POTASSIUM CHLORIDE 20 MEQ TAB.PRT.SR PO ONE (09:00)
[2018-02-28] MEDS ORDERED: 5 DAY TAPER BUPRENORPHINE -SERENITY PROTOCOL SL PRN (09:00)
[2018-02-28] MEDS ORDERED: TUBERCULIN,PURIF.PROT.DERIV. 5 TU/0.1 ML TEST ID ONE (09:00)
[2018-02-28] MEDS ORDERED: 5 DAY TAPER VALIUM-SERENITY PROTOCOL PO PRN (09:00)
[2018-02-28] MEDS ORDERED: MAGNESIUM OXIDE 400 MG TABLET PO ONE (09:00)
[2018-02-28] MEDS ORDERED: QUETIAPINE FUMARATE 25 MG TABLET PO PRN (09:30)
[2018-02-28] MEDS: DIAZEPAM 10 MG TABLET PO SCH ×3 (09:32→21:58)
[2018-02-28] MEDS: BUPRENORPHINE HCL 2 MG TAB.SUBL SL SCH ×4 (09:32→21:59)
[2018-02-28] MEDS: MULTIVITAMINS,THERAPEUTIC TABLET PO SCH (09:32)
[2018-02-28 12:00] VITALS: BP 137/84
--- NOTE | 2018-02-28 14:30 | NUR ---
Therapist prompted client to attend group therapy.
[2018-02-28 16:00] VITALS: BP 130/82
[2018-02-28] MEDS ORDERED: PRAZOSIN HCL 1 MG CAPSULE PO PRN (16:00)
--- NOTE | 2018-02-28 19:21 | NUR ---
End of Shift Report given to shift commander nurse, Plan of care followed, Vital signs monitored closely Q4H. Withdrawals symptoms were closely monitored, medications given as schedule. Initial COWS 11 CIWA 11. Pt encouraged adequate PO fluid intake as tolerated to compensate for all the water lost in sweat as well as with helping speed up the detox process. Pt presented with diaphoresis, anxiety restless legs, yawning agitation, emotional volatility and restlessness during the day. Pt received all of the scheduled medications. Pt did not receive any PRN medications during the day. Last COWS 13 CIWA 12. Pt reported that Subutex and Valium tapers have been working well at controlling the withdrawal symptoms. Pt ate all of the meals. Pt attended all the groups and activities to learn new coping skills to prevent relapse. Pt denies any SI/HI. All safety measures in place, bed in lowest locked position, call light within reach. All needs met and attended.
--- NOTE | 2018-02-28 19:40 | NUR ---
START OF SHIFT Patient is 32-year-old female admitted on 02/27/18 for benzodiazepine, ETOH and opiate withdrawal. Patient started on a 5-day Valium taper and a 5-day Subutex taper today, tolerating moderately well. Patient received no PRN medications today; last COWS 13, last CIWA 12. Upon assessment, patient reports, Lani had a headache all day, and my nausea comes and goes. Patient verbalizes willingness and thankfulness to be at [facility] stating, you should see some of the detoxes Lani been to. Patient reports chills, sweats, body aches and increased anxiety. Patient states, I just really need to sleep tonight. Patient is on fall and seizure precautions with history of seizure, most recently in 2008 related to benzo withdrawal. Safety measures in place, side rails up x2, bed locked in low position, call light within reach. Will continue to monitor.
[2018-02-28 20:00] VITALS: BP 136/92
[2018-02-28] MEDS: IBUPROFEN 600 MG TABLET PO PRN (21:58)
[2018-02-28] MEDS: TRAZODONE 100 MG TABLET PO PRN (21:58)
[2018-02-28] MEDS: ONDANSETRON ODT 4 MG TAB.RAPDIS SL PRN (21:59)
--- NOTE | 2018-02-28 21:59 | NUR ---
PRN ZOFRAN SL, MOTRIN, & TRAZODONE Patient reports headache 6/10, nausea, and difficulty sleeping. PRN Zofran given SL, PRN Motrin and PRN Trazodone given PO. Safety measures in place, side rails up x2, bed locked in low position, call light within reach. Will monitor for effectiveness.
[2018-02-28] MEDS: METHOCARBAMOL 750 MG TABLET PO PRN (22:12)
--- NOTE | 2018-02-28 22:12 | NUR ---
PRN ROBAXIN Patient reports generalized body aches "6 or 7 out of 10" on pain scale. PRN Robaxin given PO. Safety measures in place, side rails up x2, bed locked in low position, call light within reach. Will monitor for effectiveness.
--- NOTE | 2018-02-28 22:29 | NUR ---
PRN ZOFRAN REASSESSMENT Patient reports nausea has improved. Patient states, "I feel like eating a sandwich." PRN Zofran noted to be effective. Safety measures in place, call light within reach. Will continue to monitor.
--- NOTE | 2018-02-28 22:59 | NUR ---
PRN MOTRIN & TRAZODONE REASSESSMENT Patient reports headache 3/10 and feeling more relaxed to sleep. PRN Motrin and Trazodone noted to be effective. Safety measures in place, side rails up x2, bed locked in low position, call light within reach. Will continue to monitor.
--- NOTE | 2018-02-28 23:12 | NUR ---
PRN ROBAXIN REASSESSMENT Patient reports that body aches have improved, /. PRN Robaxin noted to be effective. Safety measures in place, call light within reach. Will continue to monitor.
[2018-03-01] VITALS: BP 128/81
[2018-03-01 04:00] VITALS: BP 119/73
--- NOTE | 2018-03-01 07:00 | NUR ---
END OF SHIFT Patient is 32-year-old female admitted on 02/27/18 for benzodiazepine, ETOH and opiate withdrawal. Patient is currently on a 5-day Valium taper and a 5-day Subutex tape, tolerating moderately well. Today is day 2 of both tapers. Patient received the following PRN medications: Zofran, Motrin, Robaxin, and Trazodone. All PRN medications noted to be effective. Last COWS 13, last CIWA 13. Patient slept for 6 hours, total intake of 1,283mL, void x2, stool x0. Patient is on fall and seizure precautions with history of seizure, most recently in 2008 related to benzo withdrawal. Safety measures in place, side rails up x2, bed locked in low position, call light within reach. Will endorse to day shift.
[2018-03-01 07:07] LABS: HEPATITIS B SURFACE AG Negative (Negative)
--- NOTE | 2018-03-01 07:40 | NUR ---
START OF SHIFT NOTE Received report from night nurse, 32 year female admitted for ETOH/Benzo/Heroin Withdrawal. Patient continues on 5 days Valium/5 days Subutex taper tolerating well. Per endorsement patient received PRN Zofran,Motrin,Robaxin, Trazodone, slept for 6 hours, last , . patient alert awake oriented x4, anxious, agitated, fatigue, restlessness, stuffy nose, bilateral hand tremors, unkempt, anhedonia, stomach cramps. Patient is due for schedule medications. Educated patient on current plan of the day and medications regimen. Patient verbalized understanding. Addendum: 03/05/18 at 0803 by JOSE ANGEL OROZCO LVN CORRECTION-Patient 's /.
[2018-03-01 08:00] VITALS: BP 110/62
[2018-03-01] MEDS: DIAZEPAM 5 MG TABLET PO SCH ×4 (08:31→21:12)
[2018-03-01] MEDS: BUPRENORPHINE HCL 2 MG TAB.SUBL SL SCH ×3 (08:32→21:12)
[2018-03-01] MEDS: MULTIVITAMINS,THERAPEUTIC TABLET PO SCH (08:32)
[2018-03-01 09:04] LABS: CREATININE 0.9 mg/dL (0.6-1.3); POTASSIUM 4.3 mmol/L (3.5-5.1)
--- NOTE | 2018-03-01 10:17 | NUR ---
Therapist prompted client to attend group therapy.
[2018-03-01 12:00] VITALS: BP 124/67
[2018-03-01] MEDS: ONDANSETRON ODT 4 MG TAB.RAPDIS SL PRN ×2 (14:13→23:34)
--- NOTE | 2018-03-01 14:13 | NUR ---
PRN ZOFRAN Patient reported feeling nauseated. PRN Zofran 4mg SL administered as ordered. Will cont to monitor and reassess.
--- NOTE | 2018-03-01 14:43 | NUR ---
ZOFRAN REASSESSMENT Patient reported Zofran was effective nausea improved.
[2018-03-01] MEDS: CARBAMAZEPINE 200 MG TABLET PO SCH ×2 (15:09→21:13)
[2018-03-01 16:00] VITALS: BP 110/68
--- NOTE | 2018-03-01 19:17 | NUR ---
END OF SHIFT Gave report to night nurse, 32 year old female admitted for ETOH/Benzo/Opioids withdrawal and continues with Subutex and Valium taper tolerating well. Patient presented with anxiety, agitation, restless, runny nose, anhedonia, stomach cramps, bilateral hand tremors, nausea, light headed. During shift patient received PRN Zofran noted to be effective. Patient was seen by psychiatrist and new order to start on Tegretol 20mg PO TID, and Minipress 2mg QHS medication administered as ordered tolerated well. Patient attended groups and activities. Skin intact warm and dry to touch. Vital Signs WNL. Patient denies any SI/HI. All safety measures in place. Last CIWA-14 ,COWS-14 at 1600. Patient endorse to night nurse in stable condition.
--- NOTE | 2018-03-01 19:30 | NUR ---
START OF SHIFT Received patient awake, alert, and oriented x4 attending group therapy with other patients. Patient is a 32 year old female admitted for medically supervised detox from benzos, opiates, and ETOH with secondary diagnoses of anxiety, depression, panic disorder, anorexia, bulimia, dissociative identity disorder, asthma, and a history of multiple suicide attempts. Per endorsement, patient is on a 5 day valium and 5 day Subutex taper. Patient was homeless prior to admission and a MRSA swab was done. Upon assessment, patient reported having sweats, anxiety, diffuse discomfort of achiness, irritability, nausea with two episodes of emesis after lunch and dinner, and a headache at a level of 6 out of 10. Patient does not request any PRN meds at this time. Last COWS score is 14 and CIWA is 14. HOB and bilateral side rails raised. All safety measures in place. Call light is functional and within reach. Will continue to monitor.
[2018-03-01 20:00] VITALS: BP 125/78
[2018-03-01] MEDS: PRAZOSIN HCL 1 MG CAPSULE PO SCH (21:12)
[2018-03-01] MEDS: TRAZODONE 100 MG TABLET PO PRN (23:29)
--- NOTE | 2018-03-01 23:30 | NUR ---
PRN TRAZODONE AND ZOFRAN ADMINISTRATION Patient reports difficulty sleeping and nausea with no recent episodes of emesis. Patient states that she vomited her lunch and dinner several hours ago and is current feeling nauseous. PRN Zofran 4 mg and Trazodone 100 mg given per MD orders and patient request. Will continue to monitor and reassess for effectiveness.
--- NOTE | 2018-03-02 00:30 | NUR ---
PRN TRAZODONE AND ZOFRAN REASSESSMENT Patient is noted lying in bed with eyes closed and even, unlabored respirations. No negative symptoms or emesis noted and no pain is assessed. PRN meds noted to be effective. Will continue to monitor.
--- NOTE | 2018-03-02 07:30 | NUR ---
START OF SHIFT Pt 32 y/o female admitted for benzo/ etoh/ opioid withdrawal. Pt received in room on bed with eyes closed resting, but arousable to name. Pt alert and oriented to name, place, and time. Perrla. Skin warm and moist to touch. Respirations even and unlabored. Appears disheveled. Clothes scattered throughout room. Encouraged to maintain hygiene. Anxious and restless. Pressured speech. Bilateral hand tremors. Intermittent perspiration. Complaints of generalized discomfort. It was reported that pt slept for 3 hours last night. Pt is on a 5 day valium taper and is on day 3. pt is on a 5 day subutex taper and is on day 3. Bed on lowest position with side rails x 2 up for safety. Call light within reach.
--- NOTE | 2018-03-02 07:30 | NUR ---
END OF SHIFT Patient is a 32 year old female admitted for medically supervised detox from benzos, opiates, and ETOH with secondary diagnoses of anxiety, depression, panic disorder, anorexia, bulimia, dissociative identity disorder, asthma, and a history of multiple suicide attempts. During the shift, the patient reported having symptoms of nausea, anxiety, tremors, and difficulty sleeping. Patient was given Zofran SL and Trazodone for symptomatic relief and meds were effective. Patient stated that she vomited after both lunch and dinner yesterday and was feeling hungry at the start of the shift. Last COWS was 13 and last CIWA was 14. Patient slept for about 3 hours. HOB flat and bilateral side rails raised. Call light is functional and within reach. All safety measures in place. Seizure and fall precautions maintained. Endorsed to oncoming AM nurse.
[2018-03-02 08:00] VITALS: BP 103/61
[2018-03-02] MEDS ORDERED: BUPRENORPHINE HCL 2 MG TAB.SUBL SL SCH (09:00)
[2018-03-02] MEDS: MULTIVITAMINS,THERAPEUTIC TABLET PO SCH (09:06)
[2018-03-02] MEDS: IBUPROFEN 600 MG TABLET PO PRN (09:06)
[2018-03-02] MEDS: METHOCARBAMOL 750 MG TABLET PO PRN (09:06)
[2018-03-02] MEDS: CARBAMAZEPINE 200 MG TABLET PO SCH ×3 (09:06→21:35)
[2018-03-02] MEDS: DIAZEPAM 5 MG TABLET PO SCH ×3 (09:07→21:35)
--- NOTE | 2018-03-02 09:14 | NUR ---
PRN ZOFRAN MOTRIN ROBAXIN Complaints of nausea. Zofran odt prn per MD order given. Complaints of generalized body aches 08/22. Robaxin po prn per MD order given. Complaints of headache 07/23. Motrin po prn per MD order given.
--- NOTE | 2018-03-02 10:14 | NUR ---
PRN TRUNG VIDALAXIN EVAL Pt denies nausea at this time. pt states body aches 4/10. Pt states headache 2/10.
[2018-03-02] MEDS: BUPRENORPHINE HCL 2 MG TAB.SUBL SL SCH ×2 (15:11→21:35)
[2018-03-02 16:00] VITALS: BP 111/61
--- NOTE | 2018-03-02 16:17 | NUR ---
RT prompted pt to attend groups. Pt's group attendance and participation was positively reinforced
[2018-03-02] MEDS: MIRALAX 17 GM POWD.PACK PO PRN (16:34)
--- NOTE | 2018-03-02 16:37 | NUR ---
PRN MIRALAX Pt states had no bm for several days. Miralax prn per MD order given.
--- NOTE | 2018-03-02 19:15 | NUR ---
Start of Shift Received 32 year old female patient admitted to [facility] 02/24/18 for medically supervised withdrawal from ETOH, Benzodiazepines, and Opiates. Pt currently on day 3 of a 5 day Valium taper and day 3 of a 5 day Subutex taper, which she is tolerating well. Pt received PRN Robaxin, Zofran, Miralax, and Motrin on day shift. Last CIWA 10 @1600. Pt awake and participating in group. Bed low, side rails up x 2, and call ames in reach. Will continue to monitor.
--- NOTE | 2018-03-02 19:24 | NUR ---
END OF SHIFT Pt 32 y/o female admitted for benzo/ etoh/ opioid withdrawal. Pt alert and oriented to name, place, and time. Perrla. Skin warm and moist to touch. Respirations even and unlabored. Appears disheveled. Empty drink bottles scattered throughout room. Encouraged to maintain hygiene. Anxious and restless. Pressured speech. Bilateral hand tremors. Intermittent perspiration. Complaints of generalized body aches. Cows=10 ciwa=10 @1600. Pt attended group activity today. Pt is on a 5 day valium taper and is on day 3. Pt is on a 5 day subutex taper and is on day 3. Bed on lowest position with side rails x 2 up for safety. Call light within reach.
[2018-03-02 20:00] VITALS: BP 119/74
[2018-03-02] MEDS: PRAZOSIN HCL 1 MG CAPSULE PO SCH (21:34)
[2018-03-02 23:00] VITALS: BP 118/58
[2018-03-02] MEDS: TRAZODONE 100 MG TABLET PO PRN (23:01)
--- NOTE | 2018-03-02 23:01 | NUR ---
PRN Trazodone/Milk of Magnesia Pt requested something to sleep and constipation. Medications given per order. Will monitor effect.
--- NOTE | 2018-03-03 | NUR ---
CIWA/COWS deferred/Vitals refused/Reassess PRN Trazodone and Milk of Magnesia No BM at this time. Pt resting with eyes closed. Respirations are even and unlabored. Bed low, side rails up x2, and call ames in reach. Will continue to monitor.
--- NOTE | 2018-03-03 04:00 | NUR ---
CIWA/COWS deferred/Vitals refused Pt resting with eyes closed. Respirations are even and unlabored. Bed low, side rails up x2, and call ames in reach. Will continue to monitor.
--- NOTE | 2018-03-03 06:46 | NUR ---
End of Shift Endorsing 32 year old female patient admitted to [facility] 02/24/18 for medically supervised withdrawal from ETOH, Benzodiazepines, and Opiates. Pt currently on day 4 of a 5 day Valium taper and day 4 of a 5 day Subutex taper, which she is tolerating well. Pt received PRN Trazodone and Milk of Magnesia on shift supervisor rn. Last CIWA 9 @1999. Pt in bed resting with eyes closed. Respirations are even and unlabored. Bed low, side rails up x 2, and call ames in reach. PO intake 1465ml, voided x 2, BM x 0, and slept 8 hours.
--- NOTE | 2018-03-03 07:30 | NUR ---
START OF SHIFT Pt 32 y/o female admitted for benzo/etoh/opioid withdrawal. Pt received in room awake watching television. Pt alert and oriented to name, place, and time. Perrla. Skin warm and moist to touch. Respirations even and unlabored. Appears disheveled. Clothes scattered throughout room. Encouraged to maintain hygiene. Anxious and restless. Pressured speech. Irritable. Bilateral hand tremors. Intermittent perspiration. Complaints of generalized discomfort. It was reported that pt slept for 8 hours last night. Pt is on a 5 day valium taper and is on day 4. Pt is on a 5 day subutex taper and is on day 4. Bed on lowest position with side rails x 2 up for safety. Call light within reach.
[2018-03-03 08:00] VITALS: BP 112/64
[2018-03-03] MEDS: DIAZEPAM 5 MG TABLET PO SCH ×2 (09:09→21:39)
[2018-03-03] MEDS: MIRALAX 17 GM POWD.PACK PO PRN (09:09)
[2018-03-03] MEDS: BUPRENORPHINE HCL 2 MG TAB.SUBL SL SCH ×3 (09:10→21:40)
[2018-03-03] MEDS: MULTIVITAMINS,THERAPEUTIC TABLET PO SCH (09:10)
[2018-03-03] MEDS: CARBAMAZEPINE 200 MG TABLET PO SCH ×3 (09:10→21:40)
--- NOTE | 2018-03-03 09:20 | NUR ---
PRN MIRALAXX Pt states no bm last night. Miralaxx prn per MD order given.
--- NOTE | 2018-03-03 10:20 | NUR ---
PRN MIRALAAX Pt states no bm.
[2018-03-03] MEDS: ESCITALOPRAM OXALATE 10 MG TABLET PO SCH (11:55)
[2018-03-03 12:00] VITALS: BP 120/71
[2018-03-03] MEDS: ONDANSETRON ODT 4 MG TAB.RAPDIS SL PRN ×2 (12:43→21:40)
--- NOTE | 2018-03-03 12:46 | NUR ---
PRN ZOFRAN Complaints of nausea. Zofran odt prn per MD order.
[2018-03-03] MEDS ORDERED: MAGNESIUM CITRATE 296 ML BOTTLE PO ONE (13:00)
--- NOTE | 2018-03-03 13:40 | NUR ---
ONE TIME MG CITRATE Complaints of constipation. MD aware with new order for mg citrate solution x1.
--- NOTE | 2018-03-03 13:46 | NUR ---
PRN ZOFRAN Pt denies any nausea at this time.
--- NOTE | 2018-03-03 14:46 | NUR ---
PRN ZOFRAN EVAL Pt denies nausea at this time.
[2018-03-03 16:00] VITALS: BP 124/66
--- NOTE | 2018-03-03 17:08 | NUR ---
NO BM Pt states no bm. made aware. Awaiting order.
[2018-03-03] MEDS: IBUPROFEN 600 MG TABLET PO PRN (17:30)
[2018-03-03] MEDS: METHOCARBAMOL 750 MG TABLET PO PRN (17:30)
[2018-03-03] MEDS ORDERED: BISACODYL 10 MG SUPP.RECT RC ONE (17:30)
--- NOTE | 2018-03-03 17:35 | NUR ---
PRN ROBAXIN MOTRIN DULCOLAX X1 Complaints of body aches 08/22. Robaxin po prn per MD order given. Headache 07/23. Motrin po prn per MD order given. MD called back with new order for dulcolax supp x1, noted and carried out.
--- NOTE | 2018-03-03 18:35 | NUR ---
PRN ROBAXIN MOTRIN EVAL Pt states body aches 3/10. Pt states headache /10.
--- NOTE | 2018-03-03 18:38 | NUR ---
END OF SHIFT Pt 32 y/o female admitted for benzo/ etoh/ opioid withdrawal. Pt alert and oriented to name, place, and time. Perrla. Skin warm and moist to touch. Respirations even and unlabored. Appears disheveled. Clothes scattered throughout room. Encouraged to maintain hygiene. Anxious and restless. Pressured speech. Bilateral hand tremors. Intermittent perspiration. Complaints of generalized body aches. Cows=11 ciwa=10 @1600. Pt attended group activity today. Pt is on a 5 day valium taper and is on day 4. Pt is on a 5 day subutex taper and is on day 4. Bed on lowest position with side rails x 2 up for safety. Call light within reach.
--- NOTE | 2018-03-03 19:30 | NUR ---
START OF SHIFT Received patient awake, alert, and oriented x4. Patient is a 32 year old female admitted for medically supervised detox from benzos, opiates, and ETOH with secondary diagnoses of anxiety, depression, panic disorder, anorexia, bulimia, dissociative identity disorder, asthma, and a history of multiple suicide attempts. Per endorsement, patient was given PRN meds miralax, zofran, Robaxin, motrin, and dulcolax. Patient experienced stomach pain during the AM shift and felt constipated. Upon assessment, patient reported having body aches, nausea, anxiety, and tremors. Patient also reports a 7/10 stomach pain. Patient was encouraged to increase fluid intake and level of physical activity such as walking and patient verbalized understanding. Last COWS score is 11 and CIWA is 10. HOB and bilateral side rails raised for safety. Bed is in a low position with wheels locked. Call light is functional and within reach. Will continue to monitor.
[2018-03-03 20:00] VITALS: BP 102/67
[2018-03-03] MEDS: PRAZOSIN HCL 1 MG CAPSULE PO SCH (21:39)
--- NOTE | 2018-03-03 21:40 | NUR ---
PRN ZOFRAN AND TRAZODONE ADMINISTRATION Patient reported having nausea and difficulty sleeping. PRN Zofran 4 mg and Trazodone 100 mg given per MD orders and patient request. Will continue to monitor and reassess for effectiveness. Addendum: 03/04/18 at 0015 by HOLA GODFREY RN Caregiver error Trazodone 100 mg was not given at this time. Please disregard.
--- NOTE | 2018-03-03 22:40 | NUR ---
PRN ZOFRAN AND TRAZODONE REASSESSMENT Patient is noted lying in bed with eyes closed and even, unlabored respirations. No reports of negative symptoms at this time. PRN meds Zofran and Trazodone noted to be effective. Will continue to monitor. Addendum: 03/04/18 at 0016 by HOLA GODFRYE RN Caregiver error Trazodone 100 mg was not given at this time. Please disregard.
[2018-03-03] MEDS: TRAZODONE 100 MG TABLET PO PRN (23:50)
--- NOTE | 2018-03-03 23:50 | NUR ---
PRN TRAZODONE ADMINISTRATION Patient reported having difficulty sleeping. PRN Trazodone 100 mg given per MD orders and patient request. Will continue to monitor and reassess for effectiveness.
[2018-03-04] VITALS: BP 118/71
--- NOTE | 2018-03-04 00:25 | NUR ---
VITAL SIGNS REFUSED Patient is noted lying in bed with eyes closed and even, unlabored respirations. Vital sign assessment refused at this time. Bed is in a low position with wheels locked. HOB is flat and bilateral side rails raised. Will continue to monitor. Addendum: 03/04/18 at 0512 by HOLA GODFREY RN Entire note entered in error. Please disregard.
--- NOTE | 2018-03-04 00:50 | NUR ---
PRN TRAZODONE REASSESSMENT Patient noted lying in bed with eyes closed and even, unlabored respirations. No reports of restlessness or other negative symptoms noted. PRN Trazodone noted to be effective. Call light is within reach. Will continue to monitor.
--- NOTE | 2018-03-04 04:00 | NUR ---
VITAL SIGNS REFUSED Patient is noted lying in bed with eyes closed and even, unlabored respirations. Vital sign assessment refused at this time. Bed is in a low position with wheels locked. HOB is flat and bilateral side rails raised. Will continue to monitor.
--- NOTE | 2018-03-04 07:27 | NUR ---
END OF SHIFT Patient is noted with eyes closed and even, unlabored respirations. Patient is a 32 year old female admitted for medically supervised detox from benzos, opiates, and ETOH with secondary diagnoses of anxiety, depression, panic disorder, anorexia, bulimia, dissociative identity disorder, asthma, and a history of multiple suicide attempts. During the shift, the patient was noted with nausea, anxiety, tremors, and difficulty sleeping. PRN meds Zofran and Trazodone were given and were effective. Patient was encouraged to increase fluids and level of physical activity such as ambulation and educated on importance of those activities related to gastric motility. Patient verbalized understanding. She slept for about 7 hours during the night. Last COWS is 10 and CIWA is 10. Call light within reach. HOB is flat and bilateral side rails raised. All safety measures in place. Endorsed to oncoming AM nurse.
--- NOTE | 2018-03-04 07:28 | NUR ---
START OF SHIFT NOTE Received report from night nurse, 32 year female admitted for ETOH/Benzo/Heroin Withdrawal. Patient continues on 5 days Valium/5 days Subutex taper tolerating well. Per endorsement patient received PRN Zofran,Trazodone, slept for 7 hours, last COWS-, -10. Received patient alert awake oriented x4, anxious, agitated, restlessness, bilateral hand tremors, unkempt, anhedonia, stomach cramps, constipation. Patient is due for schedule medications. Educated patient on current plan of the day and medications regimen. Patient verbalized understanding. Addendum: 03/04/18 at 1323 by JOSE ANGEL OROZCO LVN CONTINUE- All safety measures in place. Will cont with plan of care. Addendum: 03/05/18 at 0803 by JOSE ANGEL OROZCO LVN CORRECTION- Patient COWS-10, CIWA-10.
[2018-03-04 08:00] VITALS: BP 109/62
[2018-03-04] MEDS: MULTIVITAMINS,THERAPEUTIC TABLET PO SCH (08:51)
[2018-03-04] MEDS: CARBAMAZEPINE 200 MG TABLET PO SCH ×3 (08:52→20:25)
[2018-03-04] MEDS: ESCITALOPRAM OXALATE 10 MG TABLET PO SCH (08:52)
[2018-03-04] MEDS ORDERED: DIAZEPAM 5 MG TABLET PO SCH (09:00)
[2018-03-04] MEDS ORDERED: BUPRENORPHINE HCL 2 MG TAB.SUBL SL SCH (09:00)
[2018-03-04] MEDS ORDERED: TRAZODONE 100 MG TABLET PO PRN (10:45)
[2018-03-04 12:00] VITALS: BP 123/64
--- NOTE | 2018-03-04 12:16 | NUR ---
Therapist prompted client to attend all daily group therapy sessions.
[2018-03-04] MEDS ORDERED: MINERAL OIL FLEET ENEMA 133 ML BOTTLE RC ONE (12:45)
[2018-03-04] MEDS ORDERED: TRAZ-214 PO (15:16)
[2018-03-04] MEDS ORDERED: ESCI10TA PO (15:16)
[2018-03-04] MEDS ORDERED: CLON0.1T14 PO (15:16)
[2018-03-04] MEDS ORDERED: HYDR-3895 PO (15:16)
[2018-03-04] MEDS ORDERED: PRAZ1CAP2 PO (15:16)
[2018-03-04] MEDS ORDERED: METH-406 PO (15:16)
[2018-03-04] MEDS ORDERED: CARB200T8 PO (15:16)
[2018-03-04 16:00] VITALS: BP 112/65
--- NOTE | 2018-03-04 19:18 | NUR ---
END OF SHIFT Gave report to night nurse, 32 year old female admitted for ETOH/Benzo/Opioids withdrawal and completed her Subutex and Valium taper tolerated well. Patient presented with anxiety, agitation, restless, anhedonia, stomach cramps, bilateral hand tremors. During shift patient did not receive any PRN medications. Patient attended groups and activities. Skin intact warm and dry to touch. Patient scheduled for discharge in AM. Vital Signs WNL. Patient denies any SI/HI. All safety measures in place. Last CIWA-6,COWS-7 at 1600. Patient received one time dose of enema for constipation, effective patient reported had a large BM. Patient endorse to night nurse in stable condition.
--- NOTE | 2018-03-04 19:30 | NUR ---
START OF SHIFT Received patient awake, alert, oriented x4 sitting up in bed watching TV. Patient is a 32 year old female admitted for medically supervised detox from benzos, opiates, and ETOH with secondary diagnoses of anxiety, depression, panic disorder, anorexia, bulimia, dissociative identity disorder, asthma, and a history of multiple suicide attempts. Per endorsement, patient was given a fleet enema today for constipation and reported to have a large BM. Upon assessment, patient reported to have diffuse aching and back pain at a level of 5 out of 10. PRN pain meds were offered, but patient declined stating I always have this back pain so Im used to it and Ill be discharged soon so I need to get used to not taking stuff. Last COWS score is 7 and CIWA is 6. HOB and bilateral side rails raised. All safety measures in place. Bed is in a low position with wheels locked. Call light is functional and within reach. Will continue to monitor.
[2018-03-04 20:10] VITALS: BP 119/77
[2018-03-04] MEDS: PRAZOSIN HCL 1 MG CAPSULE PO SCH (20:25)
--- NOTE | 2018-03-05 00:07 | NUR ---
VITAL SIGNS REFUSED Patient is noted lying in bed with eyes closed and even, unlabored respirations. Vital sign assessment refused. HOB flat and bilateral side rails raised. Call light within reach. Will continue to monitor.
--- NOTE | 2018-03-05 07:09 | NUR ---
END OF SHIFT Patient is noted lying in bed with eyes closed and even, unlabored respirations. Patient reported having back pain during the shift but declined the offer for PRN meds stating that shed rather attempt to get used to not taking pain meds so soon after discharge which is scheduled for this morning. Patient tolerated plan of care and medication regimen. Patient slept for about 7 hours during the night. Last COWS score was 8 and CIWA is 7 taken at 2000. Call light functional and within reach. HOB flat and bilateral side rails raised. Bed is in a low position with wheels locked. Safety measures in place. Endorsed to oncoming AM nurse.
--- NOTE | 2018-03-05 07:46 | NUR ---
START OF SHIFT NOTE Received report from night nurse, 32 year female admitted for ETOH/Benzo/Heroin Withdrawal. Patient completed her 5 days Valium/5 days Subutex taper tolerated well. Per endorsement patient did not receive any PRN'S, slept for 7 hours, last COWS-8, CIWA-7. Received patient alert awake oriented x4, just came out from shower reported feeling little anxious, restlessness, bilateral hand tremors. Patient encouraged to use diversional activities to alleviate anxiety. Patient verbalized understanding. Patient is due for schedule medications. Patient schedule for discharge today. All safety measures in place. Will cont with plan of care.
[2018-03-05 08:00] VITALS: BP 113/65
[2018-03-05] MEDS: CARBAMAZEPINE 200 MG TABLET PO SCH (08:37)
[2018-03-05] MEDS: MULTIVITAMINS,THERAPEUTIC TABLET PO SCH (08:37)
[2018-03-05] MEDS: ESCITALOPRAM OXALATE 10 MG TABLET PO SCH (08:37)
[2018-03-05 12:00] VITALS: BP 114/64
--- NOTE | 2018-03-05 12:35 | NUR ---
DISCHARGE NOTE Patient has been discharge from [facility] in stable condition. Vital signs WNL. Patient denies any SI/HI. All paper work has been completed signed and dated. Patient left with all of her belongings, medications and prescriptions. Patient has been discharge from [facility] on 03/05/18 at 1235. has been notified.
== END 2018-03-05 12:35 | DRG 895 ==
LOC: SRC 13:32
PROVIDERS: ADMIT Family Medicine Addiction Medicine; ATTEND Family Medicine Addiction Medicine
PROC: HZ2ZZZZ Detoxification Services for Substance Abuse Treatment (ICD-10-PCS; principal; 2018-02-27)
PROC: HZ41ZZZ Group Counseling for Substance Abuse Treatment, Behavioral (ICD-10-PCS; 2018-02-28)
PROC: HZ31ZZZ Individual Counseling for Substance Abuse Treatment, Behavioral (ICD-10-PCS; 2018-02-28)
DX: F10.230 Alcohol dependence with withdrawal, uncomplicated (principal); G40.509 Epileptic seizures related to external causes, not intractable, without status epilepticus; F50.2 Bulimia nervosa; F50.00 Anorexia nervosa, unspecified; F15.23 Other stimulant dependence with withdrawal; F14.10 Cocaine abuse, uncomplicated; Y90.0 Blood alcohol level of less than 20 mg/100 ml; Z59.0 Homelessness; J45.909 Unspecified asthma, uncomplicated; Z81.3 Family history of other psychoactive substance abuse and dependence; F17.210 Nicotine dependence, cigarettes, uncomplicated; Z88.0 Allergy status to penicillin; F12.129 Cannabis abuse with intoxication, unspecified; F41.1 Generalized anxiety disorder; Z68.21 Body mass index [BMI] 21.0-21.9, adult; F41.0 Panic disorder [episodic paroxysmal anxiety]; Z86.59 Personal history of other mental and behavioral disorders; Z91.5 Personal history of self-harm; G47.00 Insomnia, unspecified; K59.00 Constipation, unspecified; F60.9 Personality disorder, unspecified; F44.9 Dissociative and conversion disorder, unspecified; F51.5 Nightmare disorder
CPT/HCPCS: 36415; 70030-TC; 80307; 80324; 80349; 83735; 84443; 84703; 85025; 86592; 86705; 86803; 87340; 87806; A4663; G0480; Q0162; Q0163